=== PATIENT | female | born 2000 | race Caucasian/White ===

== ENCOUNTER 2022-07-25 20:32 | Emergency (ER) | payer OTHER, BC ==
[2022-07-25] MEDS ORDERED: Ketorolac Tromethamine 30 MG/ML VIAL ONE (21:07)
[2022-07-25] MEDS ORDERED: Boostrix 0.5 ML (Tdap) VIAL (>/=7 yrs of age) ONE (21:07)
== END 2022-07-25 21:34 | disposition home or self-care (01) ==
LOC: CSHERS 20:32
DX: S20.212A Contusion of left front wall of thorax, initial encounter (principal); S16.1XXA Strain of muscle, fascia and tendon at neck level, initial encounter; S51.812A Laceration without foreign body of left forearm, initial encounter; V49.9XXA Car occupant (driver) (passenger) injured in unspecified traffic accident, initial encounter
CPT/HCPCS: 90471; 90715; 96372; J1885

== ENCOUNTER 2022-08-17 10:13 | Emergency (ER) | payer BC ==
[2022-08-17 11:44] LABS: #Eosinphils 0.1 10x3/uL (0.0-0.5); #Monocytes 0.5 10x3/uL (0.0-1.1); #Neutrophils 5.1 10x3/uL (1.5-8.4); %Basophils 0.4 % (0.0-2.0); %Eosinophils 1.6 % (0.0-6.0); %Lymphocytes 24.5 % (18.0-47.0); %Monocytes 6.6 % (0.0-10.0); %Neutrophils 66.6 % (40.0-75.0); Hemoglobin 12.9 g/dL (12.0-15.5); Mean Corpuscular HGB CONC 32.6 g/dL (32.0-36.0); Mean Corpuscular Hemoglobin 28.3 pg (27.0-33.0); Mean Corpuscular Volume 86.8 fl (81.6-98.3); Mean Platelet Volume 10.2 fl (7.4-10.4); Platelet Count 276 10x3/uL (150-450); RBC Distribution Width 13.3 % (11.5-14.5); Red Blood Cell (RBC) Count 4.56 10x6/uL (3.90-5.03); White Blood Cell (WBC) Count 7.6 10x3/uL (3.5-10.5)
[2022-08-17 11:53] LABS: BHCG - Serum Negative (NEGATIVE); Pregs Control Background? CLEAR/WHITE (CLR/WHITE); Pregs Control Bar Appear? YES (CONTROL BAR)
[2022-08-17 12:32] LABS: ALT (SGPT) 31 U/L (8-55); AST (SGOT) 19 U/L (5-34); Albumin 3.8 g/dL (3.5-5.0); Alkaline Phosphatase 69 U/L (40-110); Anion Gap 11 mmol/L (10-20); BUN (Urea Nitrogen) 6 mg/dL (7.0-18.7); Bilirubin, Total 0.4 mg/dL (0.2-1.2); CK (CPK) 71 U/L (29-168); Calc. Creatinine Clearance 0 mL/min (70-130); Calcium 9.1 mg/dL (7.8-10.44); Carbon Dioxide 22 mmol/L (22-29); Chloride 107 mmol/L (98-107); Estimated GFR 128; Globulin 3.1 g/dL (2.4-3.5); Glucose 90 mg/dL (70-105); Potassium 3.7 mmol/L (3.5-5.1); Protein, Total 6.9 g/dL (6.0-8.3); Sodium 136 mmol/L (136-145)
== END 2022-08-17 13:04 | disposition home or self-care (01) ==
LOC: CSHERS 10:13
DX: R07.89 Other chest pain (principal); M94.0 Chondrocostal junction syndrome [Tietze]; E11.9 Type 2 diabetes mellitus without complications; Z79.82 Long term (current) use of aspirin
CPT/HCPCS: 80053; 82550; 84703; 85025; 85379; 86140; 93005

== ENCOUNTER 2022-09-08 10:21 | Emergency (ER) | payer BC ==
[2022-09-08] MEDS ORDERED: hydrOXYzine 25 MG TAB ONE (11:14)
[2022-09-08 11:33] LABS: #Eosinphils 0.1 10x3/uL (0.0-0.5); #Monocytes 0.5 10x3/uL (0.0-1.1); #Neutrophils 6.5 10x3/uL (1.5-8.4); %Basophils 0.3 % (0.0-2.0); %Lymphocytes 24.3 % (18.0-47.0); %Monocytes 5.7 % (0.0-10.0); %Neutrophils 68.5 % (40.0-75.0); Hemoglobin 13.3 g/dL (12.0-15.5); Mean Corpuscular HGB CONC 33.1 g/dL (32.0-36.0); Mean Corpuscular Hemoglobin 28.9 pg (27.0-33.0); Mean Corpuscular Volume 87.2 fl (81.6-98.3); Mean Platelet Volume 10.7 fl (7.4-10.4); Platelet Count 277 10x3/uL (150-450); Red Blood Cell (RBC) Count 4.61 10x6/uL (3.90-5.03); White Blood Cell (WBC) Count 9.5 10x3/uL (3.5-10.5)
[2022-09-08 11:55] LABS: ALT (SGPT) 22 U/L (8-55); AST (SGOT) 16 U/L (5-34); Albumin 4.1 g/dL (3.5-5.0); Alkaline Phosphatase 68 U/L (40-110); Anion Gap 12 mmol/L (10-20); BUN (Urea Nitrogen) 7 mg/dL (7.0-18.7); Bilirubin, Total 0.4 mg/dL (0.2-1.2); Calc. Creatinine Clearance 0 mL/min (70-130); Calcium 9.4 mg/dL (7.8-10.44); Carbon Dioxide 27 mmol/L (22-29); Chloride 107 mmol/L (98-107); Estimated GFR 110; Globulin 2.7 g/dL (2.4-3.5); Glucose 93 mg/dL (70-105); Potassium 4.1 mmol/L (3.5-5.1); Protein, Total 6.8 g/dL (6.0-8.3); Sodium 142 mmol/L (136-145)
[2022-09-08 12:44] LABS: BHCG - Serum Negative (NEGATIVE); Pregs Control Background? CLEAR/WHITE (CLR/WHITE); Pregs Control Bar Appear? YES (CONTROL BAR)
== END 2022-09-08 15:20 | disposition home or self-care (01) ==
LOC: CSHERS 10:21
DX: F41.9 Anxiety disorder, unspecified (principal); E11.9 Type 2 diabetes mellitus without complications
CPT/HCPCS: 36415; 70450; 71045; 80053; 84484; 84703; 85025; 93005; 93010

== ENCOUNTER 2022-09-13 00:34 | Emergency (ER) | payer BC | END 2022-09-13 02:05 | disposition home or self-care (01) | LOC: CSHERS 00:34 | DX: R06.02 Shortness of breath (principal) | CPT/HCPCS: 71045; 93005; 93010 ==

== ENCOUNTER 2022-09-28 20:28 | Emergency (ER) | payer BC ==
[2022-09-28 21:25] LABS: #Eosinphils 0.2 10x3/uL (0.0-0.5); #Monocytes 0.8 10x3/uL (0.0-1.1); #Neutrophils 6.7 10x3/uL (1.5-8.4); %Basophils 0.3 % (0.0-2.0); %Eosinophils 1.5 % (0.0-6.0); %Lymphocytes 29.3 % (18.0-47.0); %Neutrophils 61.6 % (40.0-75.0); Hematocrit 38.9 % (34.9-44.5); Mean Corpuscular HGB CONC 33.4 g/dL (32.0-36.0); Mean Corpuscular Hemoglobin 29.1 pg (27.0-33.0); Platelet Count 317 10x3/uL (150-450); RBC Distribution Width 13.3 % (11.5-14.5); Red Blood Cell (RBC) Count 4.47 10x6/uL (3.90-5.03); White Blood Cell (WBC) Count 10.8 10x3/uL (3.5-10.5)
[2022-09-28 21:38] LABS: ALT (SGPT) 24 U/L (8-55); AST (SGOT) 15 U/L (5-34); Albumin 4.1 g/dL (3.5-5.0); Alkaline Phosphatase 69 U/L (40-110); Anion Gap 12 mmol/L (10-20); BUN (Urea Nitrogen) 7 mg/dL (7.0-18.7); Bilirubin, Total 0.3 mg/dL (0.2-1.2); Calc. Creatinine Clearance 0 mL/min (70-130); Calcium 8.9 mg/dL (7.8-10.44); Carbon Dioxide 25 mmol/L (22-29); Chloride 104 mmol/L (98-107); Estimated GFR 119; Globulin 2.7 g/dL (2.4-3.5); Glucose 89 mg/dL (70-105); Potassium 3.7 mmol/L (3.5-5.1); Protein, Total 6.8 g/dL (6.0-8.3); Sodium 137 mmol/L (136-145)
[2022-09-28 21:41] LABS: Troponin I Less than 0.010 ng/mL (< 0.028)
== END 2022-09-28 22:45 | disposition home or self-care (01) ==
LOC: CSHERS 20:28
DX: F41.0 Panic disorder [episodic paroxysmal anxiety] (principal); J45.909 Unspecified asthma, uncomplicated
CPT/HCPCS: 36415; 71045; 80053; 84484; 85025; 93005

== ENCOUNTER 2022-10-13 00:43 | Emergency (ER) | payer BC | END 2022-10-13 01:34 | disposition home or self-care (01) | LOC: CSHERS 00:43 | DX: R07.9 Chest pain, unspecified (principal); J45.909 Unspecified asthma, uncomplicated; Z79.899 Other long term (current) drug therapy | CPT/HCPCS: 71045; 93005 ==

== ENCOUNTER 2023-10-08 07:25 | Emergency (ER) | payer BC ==
[2023-10-08] MEDS ORDERED: Ibuprofen 200 MG TAB ONE (08:24)
== END 2023-10-08 08:52 | disposition home or self-care (01) ==
LOC: CSHERS 07:25
DX: S82.891A Other fracture of right lower leg, initial encounter for closed fracture (principal); X50.1XXA Overexertion from prolonged static or awkward postures, initial encounter

== ENCOUNTER 2024-03-09 19:23 | Emergency (ER) | payer BC, OTHER | END 2024-03-09 20:41 | disposition left against medical advice (07) | LOC: CSHERS 19:23 | DX: Z53.21 Procedure and treatment not carried out due to patient leaving prior to being seen by health care provider (principal) ==

== ENCOUNTER 2024-09-28 06:02 | Emergency (ER) | payer BC, OTHER ==
[2024-09-28] MEDS ORDERED: Lidocaine Viscous Sol 2% 15 ml UD Cup ONE (06:33)
[2024-09-28] MEDS ORDERED: Pantoprazole 40 MG VIAL ONE (06:33)
[2024-09-28] MEDS ORDERED: Mag-Al 1200 mg/1200 mg/30 ML UDCUP ONE (06:33)
[2024-09-28] MEDS ORDERED: Ondansetron PF 4 MG/2 ML Vial ONE (06:33)
[2024-09-28 06:58] LABS: #Basophils Less than 0.03 10x3/uL (0.0-0.2); #Eosinophils 0.09 10x3/uL (0.0-0.5); #Monocytes 0.56 10x3/uL (0.0-1.1); #Neutrophils 4.38 10x3/uL (1.5-8.4); %Basophils 0.3 % (0.0-2.0); %Eosinophils 1.3 % (0.0-6.0); %Lymphocytes 26.2 % (18.0-47.0); %Monocytes 8.2 % (0.0-10.0); %Neutrophils 63.7 % (40.0-75.0); Hematocrit 38.9 % (34.9-44.5); Hemoglobin 12.9 g/dL (12.0-15.5); Mean Corpuscular Hemoglobin 29.6 pg (27.0-33.0); Mean Corpuscular Volume 89.2 fL (81.6-98.3); Platelet Count 284 10x3/uL (150-450); Red Blood Cell (RBC) Count 4.36 10x6/uL (3.90-5.03); White Blood Cell (WBC) Count 6.87 10x3/uL (3.5-10.5)
[2024-09-28 07:03] LABS: Glucose, Urine (Dipstick) Normal (Negative); Leukocyte 500 (Negative); Protein, Urine (Dipstick) 30 mg/dl (Neg-Trace); Specific Gravity, Urine 1.025 (1.005-1.030)
[2024-09-28 07:07] LABS: CAUTI Indications for Culture Dysuria,urgency,freq; RBC/HPF 0-3 HPF (0-3)
[2024-09-28 07:08] LABS: Bacteria/HPF 4+ HPF (None Seen)
[2024-09-28 07:09] LABS: BHCG - Serum Negative (NEGATIVE); Urine Culture Reflex Yes Yes
[2024-09-28 07:10] LABS: Pregs Control Background? CLEAR/WHITE (CLR/WHITE); Pregs Control Bar Appear? YES (CONTROL BAR)
[2024-09-28 07:17] LABS: ALT (SGPT) 32 U/L (Less than 34); AST (SGOT) 25 U/L (11-34); Albumin 4.1 g/dL (3.1-4.5); Alkaline Phosphatase 73 U/L (40-110); Anion Gap 13 mmol/L (10-20); BUN (Urea Nitrogen) 9 mg/dL (7.0-18.7); Bilirubin, Total 0.6 mg/dL (0.3-1.2); Calc. Creatinine Clearance 0 mL/min (70-130); Calcium 9.2 mg/dL (7.8-10.44); Carbon Dioxide 24 mmol/L (22-29); Chloride 108 mmol/L (98-107); Globulin 3.5 g/dL (2.4-3.5); Glucose 97 mg/dL (70-105); Lipase 5 U/L (8-78); Potassium 3.7 mmol/L (3.5-5.1); Sodium 141 mmol/L (136-145)
== END 2024-09-28 09:54 | disposition home or self-care (01) ==
LOC: CSHERS 06:02
DX: N39.0 Urinary tract infection, site not specified (principal)
CPT/HCPCS: 74177; 80053; 81001; 83690; 84703; 85025; 87086; 96361; 96374; 96375; J2270; J2405; J2470